=== PATIENT | male | born 1980 | race African-American/Black ===

== ENCOUNTER 2017-12-11 11:19 | Emergency (ER) | payer SELFPAY ==
[~2017-12-11] VITALS: Ht 170.2 cm; Wt 72.6 kg
--- NOTE | 2017-12-11 11:40 | PHYS DOC ---
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 States he felt like he was starting to get sick. Complains of cough and sore throat. Patient is around a pack a day smoker. Associated symptoms include tense feeling in chest. States similar symptoms in the past with indigestion. States he has not taken anything at home for his symptoms. Denies weakness, fever, n/v, diarrhea, blood in stool, headache, vision changes. Review of Systems Review of Systems Constitutional: Denies fever or chills [] Eyes: Denies change in visual acuity, redness, or eye pain [] HENT: Complains of sore throat. Denies nasal congestion. Respiratory: Complains of cough and shortness of breath. Cardiovascular: No additional information not addressed in HPI [] GI: Denies abdominal pain, nausea, vomiting, bloody stools or diarrhea [] : Denies dysuria or hematuria [] Musculoskeletal: Denies back pain or joint pain [] Integument: Denies rash or skin lesions [] Neurologic: Denies headache, focal weakness or sensory changes [] All other systems were reviewed and found to be within normal limits, except as documented in this note. Current Medications Current Medications Current Medications Medications (Trade) Dose Ordered Sig/Monica Start Time Stop Time Status Last Admin Dose Admin Famotidine (Pepcid) 20 mg 1X ONCE 12/11/17 11:45 12/11/17 11:46 DC 12/11/17 12:40 20 MG Multi-Ingredient Mouthwash/Gargle (Gi Cocktail) 20 ml 1X ONCE 12/11/17 11:45 12/11/17 11:46 DC 12/11/17 12:41 20 ML Allergies Allergies Allergies Coded Allergies Type Severity Reaction Last Updated Verified acetaminophen Allergy Intermediate Hives 12/11/17 Yes Physical Exam Physical Exam Constitutional: Well developed, well nourished, no acute distress, non-toxic appearance. [] HENT: Normocephalic, atraumatic, bilateral external ears normal, oropharynx moist, no oral exudates, nose normal. [] Eyes: PERRLA, EOMI, conjunctiva normal, no discharge. [] Neck: Normal range of motion, no tenderness, supple, no stridor. [] Cardiovascular:Heart rate regular rhythm, no murmur [] Lungs & Thorax: Bilateral breath sounds clear to auscultation [] Abdomen: Bowel sounds normal, soft, no tenderness, no masses, no pulsatile masses. [] Skin: Warm, dry, no erythema, no rash. [] Back: No tenderness, no CVA tenderness. [] Extremities: No tenderness, no cyanosis, no clubbing, ROM intact, no edema. [] Neurologic: Alert and oriented X 3, normal motor function, normal sensory function, no focal deficits noted. [] Psychologic: Affect normal, judgement normal, mood normal. [] Current Patient Data Vital Signs Vital Signs Date Time Temp Pulse Resp B/P (MAP) Pulse Ox O2 Delivery O2 Flow Rate FiO2 12/11/17 13:35 62 16 137/62 (87) 97 Room Air 12/11/17 11:26 97.8 97.8 Lab Values Laboratory Tests Test 12/11/17 12:00 12/11/17 12:45 Urine Collection Type Unknown Urine Color Yellow Urine Clarity Clear Urine pH 6.5 Urine Specific [place] <=1.005 Urine Protein Negative mg/dL (NEG-TRACE) Urine Glucose (UA) Negative mg/dL (NEG) Urine Ketones (Stick) Negative mg/dL (NEG) Urine Blood Negative (NEG) Urine Nitrite Negative (NEG) Urine Bilirubin Negative (NEG) Urine Urobilinogen Dipstick 0.2 mg/dL (0.2 mg/dL) Urine Leukocyte Esterase Negative (NEG) Urine RBC 0 /HPF (0-2) Urine WBC 0 /HPF (0-4) Urine Squamous Epithelial Cells Occ /LPF Urine Bacteria 0 /HPF (0-FEW) White Blood Count 6.1 x10^3/uL (4.0-11.0) Red Blood Count 4.87 x10^6/uL (4.30-5.70) Hemoglobin 16.1 g/dL (13.0-17.5) Hematocrit 45.8 % (39.0-53.0) Mean Corpuscular Volume 94 fL (79-100) Mean Corpuscular Hemoglobin 33 pg (25-35) Mean Corpuscular Hemoglobin Concent 35 g/dL (31-37) Red Cell Distribution Width 13.2 % (11.5-14.5) Platelet Count 222 x10^3/uL (140-400) Neutrophils (%) (Auto) 73 % (31-73) Lymphocytes (%) (Auto) 18 % (24-48) L Monocytes (%) (Auto) 8 % (0-9) Eosinophils (%) (Auto) 1 % (0-3) Basophils (%) (Auto) 1 % (0-3) Neutrophils # (Auto) 4.4 x10^3uL (1.8-7.7) Lymphocytes # (Auto) 1.1 x10^3/uL (1.0-4.8) Monocytes # (Auto) 0.5 x10^3/uL (0.0-1.1) Eosinophils # (Auto) 0.0 x10^3/uL (0.0-0.7) Basophils # (Auto) 0.1 x10^3/uL (0.0-0.2) Sodium Level 138 mmol/L (136-145) Potassium Level 4.1 mmol/L (3.5-5.1) Chloride Level 103 mmol/L (98-107) Carbon Dioxide Level 26 mmol/L (21-32) Anion Gap 9 (6-14) Blood Urea Nitrogen 5 mg/dL (8-26) L Creatinine 0.9 mg/dL (0.7-1.3) Estimated GFR (Cockcroft-Gault) 114.9 BUN/Creatinine Ratio 6 (6-20) Glucose Level 112 mg/dL (70-99) H Calcium Level 9.4 mg/dL (8.5-10.1) Total Bilirubin 0.6 mg/dL (0.2-1.0) Aspartate Amino Transferase (AST) 26 U/L (15-37) Alanine Aminotransferase (ALT) 30 U/L (16-63) Alkaline Phosphatase 57 U/L (46-116) Troponin I Quantitative < 0.017 ng/mL (0.000-0.055) Total Protein 7.8 g/dL (6.4-8.2) Albumin 4.1 g/dL (3.4-5.0) Albumin/Globulin Ratio 1.1 (1.0-1.7) Laboratory Tests 12/11/17 12:45 Laboratory Tests 12/11/17 12:45 EKG EKG [] Radiology/Procedures Radiology/Procedures HISTORY: Left-sided sided chest pain, previous lung surgery No previous chest radiographs are available at this time for comparison purposes. The heart size and pulmonary vascularity are normal. There are pleural-parenchymal opacities in the right base with mild pleural thickening laterally on the right. This likely represents scarring in this patient with a history of lung surgery. Active disease such as right-sided pleural fluid cannot be excluded on this single exam. The left chest is clear. There is no evidence of left-sided pleural fluid. A defect in the right seventh rib posteriorly is probably postsurgical. IMPRESSION: Pleural-parenchymal opacities in the right lower chest are probably due to postsurgical scarring. Comparison with previous chest radiographs if available and/or radiographic follow-up would be necessary to exclude active disease.[] Course & Med Decision Making Course & Med Decision Making Pertinent Labs and Imaging studies reviewed. (See chart for details) []Discussed lab and imaging findings with patient. Patient's pain resolved after GI cocktail. States he is feeling much better. Patient's symptoms consistent with reflux. States same symptoms in the past with reflux issues. Discussed follow-up with PCP outpatient this week. Provided contact information/ education. Discussed reasons to return to the ED. Patient understands and agrees with plan. Staff Physician Addendum: I was working in the ER during the course of this patient's visit. I was available for consultation as needed, but I was not directly involved in the care of this patient. Dragon Disclaimer Dragon Disclaimer This electronic medical record was generated, in whole or in part, using a voice recognition dictation system. Departure Departure Impression: Primary Impression: Acid reflux Additional Impression: Cough Disposition: 01 HOME, SELF-CARE Condition: IMPROVED Referrals: AFIA TOBAR MD, SCOTT S MD Patient Instructions: Cough, Adult, Gastroesophageal Reflux Disease, Adult Scripts Omeprazole (OMEPRAZOLE) 20 Mg Tablet. 1 TAB PO DAILY for 10 Days, #10 TAB 0 Refills Prov: TASIA JEONG 12/11/17 Problem Qualifiers TASIA JEONG Dec 11, 2017 11:40 ZAYNAB BURGOS MD Dec 13, 2017 20:49
--- NOTE | 2017-12-11 11:42 | EKG ---
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
[2017-12-11] MEDS ORDERED: LIDO:MAALOX 1:1 20 ML SINGLE DOSE. SWSW ONE (11:45)
[2017-12-11] MEDS ORDERED: FAMOTIDINE 20 MG TABLET. PO ONE (11:45)
--- NOTE | 2017-12-11 12:03 | RAD ---
Portable chest, 12/11/2017: HISTORY: Left-sided sided chest pain, previous lung surgery No previous chest radiographs are available at this time for comparison purposes. The heart size and pulmonary vascularity are normal. There are pleural-parenchymal opacities in the right base with mild pleural thickening laterally on the right. This likely represents scarring in this patient with a history of lung surgery. Active disease such as right-sided pleural fluid cannot be excluded on this single exam. The left chest is clear. There is no evidence of left-sided pleural fluid. A defect in the right seventh rib posteriorly is probably postsurgical. IMPRESSION: Pleural-parenchymal opacities in the right lower chest are probably due to postsurgical scarring. Comparison with previous chest radiographs if available and/or radiographic follow-up would be necessary to exclude active disease. Electronically signed by: Ezio Benson MD (12/11/2017 12:00 PM) [facility]
[2017-12-11 12:54] LABS: BASO # 0.1 x10^3/uL (0.0-0.2); BASO % 1 % (0-3); EOS % 1 % (0-3); HEMATOCRIT 45.8 % (39.0-53.0); HEMOGLOBIN 16.1 g/dL (13.0-17.5); LYMPH # 1.1 x10^3/uL (1.0-4.8); LYMPH % 18 % (24-48); MEAN CORPUSCULAR HEMOGLOBIN 33 pg (25-35); MEAN CORPUSCULAR HGB CONC 35 g/dL (31-37); MEAN CORPUSCULAR VOLUME 94 fL (79-100); MONO # 0.5 x10^3/uL (0.0-1.1); MONO % 8 % (0-9); NEUT # 4.4 x10^3uL (1.8-7.7); NEUT % 73 % (31-73); PLATELET COUNT 222 x10^3/uL (140-400); RED BLOOD COUNT 4.87 x10^6/uL (4.30-5.70); RED CELL DISTRIBUTION WIDTH 13.2 % (11.5-14.5); WHITE BLOOD COUNT 6.1 x10^3/uL (4.0-11.0)
[2017-12-11 12:57] LABS: BILIRUBIN,URINE NEGATIVE (NEG); CLARITY,URINE CLEAR; COLOR,URINE YELLOW; NITRITE,URINE NEGATIVE (NEG); PH,URINE 6.5; PROTEIN,URINE NEGATIVE (NEG-TRACE); UROBILINOGEN,URINE 0.2 mg/dL (0.2 mg/dL)
[2017-12-11 13:00] LABS: BACTERIA,URINE 0 /HPF (0-FEW); RBC,URINE 0 /HPF (0-2); SQUAMOUS EPITHELIAL CELL,UR OCC /LPF; WBC,URINE 0 /HPF (0-4)
[2017-12-11 13:11] LABS: CALCIUM 9.4 mg/dL (8.5-10.1); CREATININE 0.9 mg/dL (0.7-1.3); GFR 114.9; POTASSIUM 4.1 mmol/L (3.5-5.1)
[2017-12-11 13:16] LABS: ALBUMIN 4.1 g/dL (3.4-5.0); ALBUMIN/GLOBULIN RATIO 1.1 (1.0-1.7); TOTAL BILIRUBIN 0.6 mg/dL (0.2-1.0); TOTAL PROTEIN 7.8 g/dL (6.4-8.2)
[2017-12-11 13:35] VITALS: BP 137/62
[2017-12-11] MEDS ORDERED: OMEP20TA8 PO (14:07)
== END 2017-12-11 14:16 | disposition home or self-care (01) ==
LOC: ER 11:19
DX: K21.9 Gastro-esophageal reflux disease without esophagitis (principal); R05 Cough; J02.9 Acute pharyngitis, unspecified; R06.02 Shortness of breath; F17.200 Nicotine dependence, unspecified, uncomplicated; Z88.6 Allergy status to analgesic agent
CPT/HCPCS: 36415; 71045; 80053; 81001; 84484; 85025; 93005; 99285-25